=== PATIENT | male | born 1960 | race Caucasian/White ===

== ENCOUNTER 2017-04-13 07:28 | Emergency (ER) | payer MEDICARE, OTHER ==
[~2017-04-13] VITALS: Ht 175.3 cm; Wt 97.7 kg
[~2017-04-13 07:28] MED LIST: AMLO-511 PO; ASPI-482 PO; FLUO40CA7 PO; HALO50AM2 IM; LISI-661 PO; METO-558 PO; RISP3 PO
[2017-04-13] MEDS ORDERED: IBUPROFEN 800 MG TABLET PO ONE (08:45)
[2017-04-13] MEDS ORDERED: CEPHALEXIN MONOHYDRATE 500 MG CAPSULE PO ONE (08:45)
[2017-04-13] MEDS ORDERED: SULFAMETHOX/TRIMETH DS 800-160 MG/TABLET PO ONE (08:45)
[2017-04-13] MEDS ORDERED: ACETAMINOPHEN 500 MG TABLET PO ONE (08:45)
[2017-04-13] MEDS ORDERED: RAPID SEQUENCE KIT [RSI] 1 EACH KIT ONE (08:54)
[2017-04-13] MEDS ORDERED: SUCCINYLCHOLINE CHLORIDE 20 MG/ML 10 ML VIAL ONE (08:54)
[2017-04-13 13:45] VITALS: BP 124/72
== END 2017-04-13 14:14 | disposition home or self-care (01) ==
LOC: EMS 07:29
DX: M79.604 Pain in right leg (principal); L03.312 Cellulitis of back [any part except buttock and flank]; L08.9 Local infection of the skin and subcutaneous tissue, unspecified; I10 Essential (primary) hypertension; F17.210 Nicotine dependence, cigarettes, uncomplicated; Z76.0 Encounter for issue of repeat prescription; Z47.2 Encounter for removal of internal fixation device; Z79.82 Long term (current) use of aspirin
CPT/HCPCS: 93971; 99284; J0330

== ENCOUNTER 2018-03-09 07:26 | Emergency (ER) | payer MEDICARE, OTHER ==
[~2018-03-09] VITALS: Ht 172.7 cm; Wt 87.6 kg
[2018-03-09 09:28] LABS: BASOPHILS % (AUTO) 0.7 % (0.0-2.0); EOSINOPHILS % (AUTO) 2.8 % (1.0-6.0); HEMATOCRIT 35.7 % (41-53); HEMOGLOBIN 12.1 g/dL (13.5-17.5); LYMPHOCYTES # (AUTO) 1.1 K/uL (1.0-4.8); LYMPHOCYTES % (AUTO) 14.8 % (22.0-44.0); MEAN CORPUSCULAR HEMOGLOBIN 26.2 pg (26.0-34.0); MEAN CORPUSCULAR HGB CONC 33.8 G/dL (31.0-37.0); MEAN CORPUSCULAR VOLUME 77 fL (80-100); MONOCYTES # (AUTO) 1.1 K/uL (0.1-1.0); MONOCYTES % (AUTO) 14.2 % (2.0-9.0); NEUTROPHILS % (AUTO) 67.5 % (40.0-70.0); PLATELET COUNT (AUTO) 179 K/uL (150-450); RED BLOOD CELL COUNT(AUTO) 4.61 MIL/uL (4.50-5.90); RED CELL DISTRIBUTION WIDTH 15.3 % (11.5-14.5)
[2018-03-09 09:37] LABS: ANION GAP 6 mmol/L (8-16); CALCIUM, TOTAL 8.8 mg/dL (8.8-10.5); CARBON DIOXIDE 28 mmol/L (22-29); CHLORIDE 99 mmol/L (98-107); CREATININE 0.64 mg/dL (0.60-1.30); GLOMERULAR FILTR. RATE CALC > 60 mL/min (>60); GLUCOSE,RANDOM 82 mg/dL (70-110); POTASSIUM 3.6 mmol/L (3.5-5.1); SODIUM SERUM 133 mmol/L (136-145); UREA NITROGEN, BLOOD 15 mg/dL (7-18)
[2018-03-09 09:43] LABS: ALANINE AMINOTRANSFERASE 29 U/L (12-78); ALBUMIN 3.2 g/dL (3.4-5.0); ALKALINE PHOSPHATASE 134 U/L (46-116); ASPARTATE AMINOTRANSFERASE 30 U/L (15-37); BILIRUBIN,TOTAL 0.7 mg/dL (0.1-1.0); TOTAL PROTEIN, SERUM 7.3 g/dL (6.4-8.2)
[2018-03-09 09:52] LABS: LACTIC ACID 0.8 mmol/L (0.4-2.0)
[2018-03-09 11:54] VITALS: BP 143/72
== END 2018-03-09 12:02 | disposition home or self-care (01) ==
LOC: EMS 07:27
DX: M79.661 Pain in right lower leg (principal); M79.89 Other specified soft tissue disorders; I10 Essential (primary) hypertension; F31.9 Bipolar disorder, unspecified; F20.9 Schizophrenia, unspecified; F17.210 Nicotine dependence, cigarettes, uncomplicated
CPT/HCPCS: 83605; 93971

== ENCOUNTER 2018-03-14 16:50 | Emergency (ER) | payer MEDICARE, OTHER ==
[~2018-03-14] VITALS: Ht 175.3 cm; Wt 72.7 kg
[2018-03-14 19:26] LABS: BASOPHILS % (AUTO) 0.3 % (0.0-2.0); EOSINOPHILS % (AUTO) 2.5 % (1.0-6.0); HEMATOCRIT 38.4 % (41-53); HEMOGLOBIN 12.9 g/dL (13.5-17.5); LYMPHOCYTES # (AUTO) 1.6 K/uL (1.0-4.8); LYMPHOCYTES % (AUTO) 13.2 % (22.0-44.0); MEAN CORPUSCULAR HEMOGLOBIN 25.9 pg (26.0-34.0); MEAN CORPUSCULAR HGB CONC 33.5 G/dL (31.0-37.0); MEAN CORPUSCULAR VOLUME 77 fL (80-100); MONOCYTES # (AUTO) 0.8 K/uL (0.1-1.0); MONOCYTES % (AUTO) 7.1 % (2.0-9.0); NEUTROPHILS # (AUTO) 9.3 K/uL (1.8-7.7); NEUTROPHILS % (AUTO) 76.9 % (40.0-70.0); PLATELET COUNT (AUTO) 213 K/uL (150-450); RED BLOOD CELL COUNT(AUTO) 4.97 MIL/uL (4.50-5.90); RED CELL DISTRIBUTION WIDTH 15.5 % (11.5-14.5)
[2018-03-14 19:47] LABS: ANION GAP 7 mmol/L (8-16); CALCIUM, TOTAL 8.8 mg/dL (8.8-10.5); CARBON DIOXIDE 30 mmol/L (22-29); CHLORIDE 98 mmol/L (98-107); CREATININE 0.69 mg/dL (0.60-1.30); GLOMERULAR FILTR. RATE CALC > 60 mL/min (>60); GLUCOSE,RANDOM 88 mg/dL (70-110); POTASSIUM 4.3 mmol/L (3.5-5.1); SODIUM SERUM 135 mmol/L (136-145); UREA NITROGEN, BLOOD 11 mg/dL (7-18)
[2018-03-14 19:50] LABS: LACTIC ACID 1.1 mmol/L (0.4-2.0)
[2018-03-14 19:52] LABS: ALANINE AMINOTRANSFERASE 38 U/L (12-78); ALBUMIN 3.4 g/dL (3.4-5.0); ALKALINE PHOSPHATASE 139 U/L (46-116); ASPARTATE AMINOTRANSFERASE 35 U/L (15-37); BILIRUBIN,TOTAL 0.2 mg/dL (0.1-1.0); LIPASE 524 U/L (73-393); TOTAL PROTEIN, SERUM 7.6 g/dL (6.4-8.2)
[2018-03-14 20:00] LABS: TROPONIN I < 0.02 ng/mL (0.00-0.05)
[2018-03-14 20:08] LABS: AMMONIA < 10 umol/L (11-32)
[2018-03-14 21:22] LABS: ERYTHROCYTE SEDIMENTATION RATE 12 MM/HR (0-15)
[2018-03-14 22:14] VITALS: BP 138/86
== END 2018-03-14 22:53 | disposition home or self-care (01) ==
LOC: EMS 16:50
DX: S82.91 Unspecified fracture of right lower leg (principal); I10 Essential (primary) hypertension; F31.9 Bipolar disorder, unspecified; F20.9 Schizophrenia, unspecified; F17.210 Nicotine dependence, cigarettes, uncomplicated; V89.2XXD Person injured in unspecified motor-vehicle accident, traffic, subsequent encounter
CPT/HCPCS: 36415; 71045; 80053; 82140; 83605; 83690; 84484; 85025; 85379; 85651; 87040; 93005; 99284; G0480

== ENCOUNTER 2019-02-16 12:58 | Emergency (ER) | payer MEDICARE, OTHER ==
[~2019-02-16] VITALS: Ht 172.7 cm; Wt 81.8 kg
[2019-02-16 14:02] VITALS: BP 150/82
[2019-02-16] MEDS ORDERED: IBUPROFEN 800 MG TABLET PO ONE (14:15)
== END 2019-02-16 14:53 | disposition home or self-care (01) ==
LOC: EMS 13:00
DX: M25.571 Pain in right ankle and joints of right foot (principal); I10 Essential (primary) hypertension; J45.909 Unspecified asthma, uncomplicated; F31.9 Bipolar disorder, unspecified; F20.9 Schizophrenia, unspecified; F17.210 Nicotine dependence, cigarettes, uncomplicated

== ENCOUNTER 2019-02-19 11:44 | Emergency (ER) | payer MEDICARE, OTHER ==
[~2019-02-19] VITALS: Ht 175.3 cm; Wt 81.8 kg
[2019-02-19 11:45] VITALS: BP 121/75
== END 2019-02-19 13:38 | disposition left against medical advice (07) ==
LOC: EMS 11:45
DX: R60.0 Localized edema (principal); I10 Essential (primary) hypertension; J45.909 Unspecified asthma, uncomplicated; F31.9 Bipolar disorder, unspecified; F20.9 Schizophrenia, unspecified; M86.9 Osteomyelitis, unspecified; F17.210 Nicotine dependence, cigarettes, uncomplicated; Z98.890 Other specified postprocedural states

== ENCOUNTER 2019-03-08 13:28 | Emergency (ER) | payer MEDICARE, OTHER ==
[~2019-03-08] VITALS: Ht 175.3 cm; Wt 81.8 kg
[2019-03-08 13:35] VITALS: BP 134/87
== END 2019-03-08 16:42 | disposition left against medical advice (07) ==
LOC: EMS 13:29
DX: M79.89 Other specified soft tissue disorders (principal); Z53.21 Procedure and treatment not carried out due to patient leaving prior to being seen by health care provider